=== PATIENT | female | born 1990 | race Caucasian/White ===

== ENCOUNTER → 2016-07-10 | Outpatient (REF) | payer OTHER | LOC: M LAB REF 17:03 | PROVIDERS: ATTEND Obstetrics & Gynecology | DX: Z34.82 Encounter for supervision of other normal pregnancy, second trimester (principal); Z36 Encounter for antenatal screening of mother; Z3A.00 Weeks of gestation of pregnancy not specified ==

== ENCOUNTER → 2016-08-09 | Outpatient (REF) | payer OTHER | LOC: M LAB REF 13:05 | PROVIDERS: ATTEND Obstetrics & Gynecology | DX: Z36 Encounter for antenatal screening of mother (principal); Z3A.00 Weeks of gestation of pregnancy not specified ==

== ENCOUNTER → 2016-08-17 | Outpatient (CLI) | payer OTHER ==
--- NOTE | 2016-08-17 15:36 | REP ---
Clinical: Anatomical evaluation. Comparison: None . Findings: Examination demonstrates a single live intrauterine in cephalic presentation. motion is identified by technologist. Placenta is noted posteriorly and grade 0 without evidence for placenta previa or abruption. Amniotic fluid volume is normal. Cervix measures 4.0 cm in length and appears closed. No evidence for nuchal cord. Gestational age by LMP 19 weeks 6 days with ELVIS 01/05/2017 . Gestational age by current measurements 20 weeks 4 days with ELVIS 12/31/2016 . FHR equals 144 beats per minute. BPD 4.9 cm 20 weeks 6 days HC 18.2 cm 20 weeks 4 days AC 15.6 cm 20 weeks 5 days FL 3.3 cm 20 weeks 1 day HL 3.2 cm 20 weeks 6 days HC/AC ratio 1.17 Estimated weight 358 grams ( 69th percentile). Anatomical assessment demonstrates normal structures including cranium, choroid plexus, cavum, cerebellum/posterior fossa, lungs, four-chamber heart/ventricular outflow tracts, diaphragm, stomach, cord insertion/three-vessel cord, kidneys/bladder, spine, and extremities. Impression: Single live intrauterine in cephalic presentation demonstrating appropriate interval growth. Facial features are incompletely evaluated. Remainder of the anatomical assessment is complete and normal. Signed by Swapnil Low MD 08/17/2016 03:27 P
== END ==
LOC: M RAD 13:44
PROVIDERS: ATTEND Obstetrics & Gynecology
DX: Z36 Encounter for antenatal screening of mother (principal); Z3A.20 20 weeks gestation of pregnancy

== ENCOUNTER → 2016-10-08 | Outpatient (CLI) | payer OTHER ==
[2016-10-08 13:06] LABS: MEAN CORPUSCULAR HEMOGLOBIN 33.3 pg (27.0-33.0); MEAN CORPUSCULAR HGB CONC 35.8 g/dl (32.0-36.5); MEAN CORPUSCULAR VOLUME 92.9 fl (80.0-96.0); RED CELL DISTRIBUTION WIDTH 13.1 % (11.5-14.5); WHITE BLOOD COUNT 8.9 K/mm3 (4.0-10.0)
== END ==
LOC: M LAB 11:26
PROVIDERS: ATTEND Obstetrics & Gynecology
DX: Z34.82 Encounter for supervision of other normal pregnancy, second trimester (principal)

== ENCOUNTER → 2016-10-16 | Outpatient (CLI) | payer OTHER | LOC: M LAB 08:20 | PROVIDERS: ATTEND Obstetrics & Gynecology | DX: Z36 Encounter for antenatal screening of mother (principal); Z3A.00 Weeks of gestation of pregnancy not specified ==

== ENCOUNTER → 2016-12-11 | Outpatient (REF) | payer OTHER | LOC: M LAB REF 17:07 | PROVIDERS: ATTEND Obstetrics & Gynecology | DX: Z34.83 Encounter for supervision of other normal pregnancy, third trimester (principal); Z36 Encounter for antenatal screening of mother ==

== ENCOUNTER 2017-01-03 15:31 | Inpatient (IN) | payer OTHER ==
[2017-01-03] VITALS (32 sets, daily range): BP systolic 108–141; BP diastolic 54–83
[~2017-01-03] VITALS: Ht 177.8 cm; Wt 89.0 kg
[2017-01-03] MEDS ORDERED: PRENTAB9 PO (15:36)
[2017-01-03] MEDS ORDERED: PENICILLIN G POTASSIUM IV 5 MU in D5W MINI-BAG PLUS 100 ML IV STA (16:08)
[2017-01-03 16:58] LABS: MEAN CORPUSCULAR HEMOGLOBIN 34.4 pg (27.0-33.0); MEAN CORPUSCULAR HGB CONC 35.6 g/dl (32.0-36.5); MEAN CORPUSCULAR VOLUME 96.6 fl (80.0-96.0); RED CELL DISTRIBUTION WIDTH 12.5 % (11.5-14.5); WHITE BLOOD COUNT 12.1 K/mm3 (4.0-10.0)
[2017-01-03] MEDS ORDERED: OXYTOCIN 30 UNITS IN 0.9% NaCl 500ML IV BAG (J2590) As Ordered ONE (19:13)
[2017-01-03] MEDS ORDERED: FENTANYL 2MCG/ML ROPIVACAINE 0.2% IN 0.9% NACL 200ML IVBAG As Ordered ONE (19:44)
--- NOTE | 2017-01-03 20:35 | HPE ---
DATE OF ADMISSION: 01/03/2017 A 26-year-old G1, P0 female at 39-5/7 weeks gestation by 6-week ultrasound, estimated date of confinement (EDC) 01/05/2017, presents for irregular contractions every 3-4 minutes for the last several hours. She denies vaginal bleeding. There is good movement. She was checked in the office and found to be 4-5 cm dilated. COURSE: The patient initiated care at 6 weeks gestation on 05/15/2016. Her first trimester blood pressure was 114/62, weight 156 pounds. Her course was unremarkable. MEDICAL HISTORY: None. SURGICAL HISTORY: None. ALLERGIES: None. SOCIAL HISTORY: The patient is . She denies cigarettes, alcohol, or drug use through her . FAMILY HISTORY: Noncontributory. PHYSICAL EXAMINATION: Blood pressure 122/82, pulse 84, afebrile. She appears moderately uncomfortable. Head and neck exam normal. Lungs clear. Heart regular rate and rhythm. Abdomen nontender, gravid. heart tones category 1. Sterile vaginal exam 6 cm, 100% effaced, -1 station, bulging membranes. Her contractions are every 2-3 minutes. Extremities: Nontender. LABORATORY DATA: Blood type O positive, Rubella immune, RPR nonreactive. Hepatitis B and C negative. HIV negative. GBS positive on 12/11/2016. ASSESSMENT: A 26-year-old G1, P0 female at 39-5/7 weeks gestation who presents in active labor. PLAN: Patient is admitted on 01/03/2017, and patient will receive antibiotics for group B streptococcus (GBS) prophylaxis.
[2017-01-03] MEDS ORDERED: PENICILLIN G POTASSIUM IV 2.5 MU in D5W 100 ML IV SCH (21:00)
[2017-01-03] MEDS ORDERED: ONDANSETRON 4MG/2ML VIAL (J2405) IV PRN (21:15)
[2017-01-03] MEDS ORDERED: FENTANYL/ROPIVACAINE/NACL BAG 200 ML EPIDURAL SCH (21:15)
[2017-01-03] MEDS ORDERED: EPIDURAL/PCA KEYS XX PRN (21:15)
[2017-01-03] MEDS ORDERED: LACTATED RINGER'S 1000 ML IV PRN (21:15)
[2017-01-03] MEDS ORDERED: REFRIGERATOR IV KEYS XX PRN (21:15)
[2017-01-03] MEDS ORDERED: ePHEDrine SULFATE 25 MG/5 ML(5MG/ML) SYRINGE IV PRN (21:15)
[2017-01-03] MEDS ORDERED: NALOXONE INJ 0.4 MG/1 ML VIAL (J2310) IV PRN (21:15)
[2017-01-03] MEDS ORDERED: diphenhydrAMINE INJ 50MG/ML VIAL (J1200) IV PRN (21:15)
[2017-01-03] MEDS ORDERED: EPIDURAL COMMENT XX SCH (21:15)
[2017-01-04] VITALS (11 sets, daily range): BP systolic 108–129; BP diastolic 56–73
[2017-01-04] MEDS ORDERED: OXYTOCIN DRIP 30 UNITS in APPROPRIATE DILUENT 1 EA IV ONE (00:15)
[2017-01-04] MEDS ORDERED: DIBUCAINE 1% OINTMENT 30GM TOP PRN (00:15)
[2017-01-04] MEDS ORDERED: METHYLERGONOVINE MALEATE 0.2 MG TAB PO PRN (00:15)
[2017-01-04] MEDS ORDERED: DOCUSATE SODIUM 100 MG CAP PO PRN (00:15)
[2017-01-04] MEDS ORDERED: RHOGAM 300 MCG (1500 IU) INJ (J2790) IM SCH (00:15)
[2017-01-04] MEDS ORDERED: LIDOCAINE 1% MDV INJ 50 ML VIAL INFIL ONE (00:15)
[2017-01-04] MEDS ORDERED: MEASLES,MUMPS,RUBELLA VACCINE INJ (MMR-II) (90707) SC SCH (00:15)
[2017-01-04] MEDS ORDERED: PROMETHAZINE 25 MG TAB PO PRN (00:15)
--- NOTE | 2017-01-04 00:40 | DN ---
DATE OF DELIVERY: 01/03/2017 PREDELIVERY DIAGNOSES: 1. Term . 2. Labor. POSTDELIVERY DIAGNOSIS: Delivered. PROCEDURE: Outlet vacuum assisted vaginal delivery. LIME MIXER: Sarabjit Gandhi MD. ANESTHESIA: Epidural. ESTIMATED BLOOD LOSS: 300 mL. FINDINGS: 8 pound 12 ounce female . scores 8 and 9. Nuchal cord times one. DELIVERY SUMMARY: After an hour plus second stage, the patient was diagnosed with arrestive placenta +3 station. Delivery was accomplished with a controlled traction and level of maternal effort on the second attempt. There were no pop offs of the vacuum. Nuchal cord times one was reduced manually. Shoulders delivered with ease. Moderate meconium was noted to be present. The infant cried spontaneously and was handed to the mother. The cord was doubly clamped and cut. Placenta delivered spontaneously and appeared to be intact. The patient received intravenous (IV) Pitocin immediately after delivery of the placenta. Second-degree perineal laceration was repaired under local anesthesia with 2-0 chromic in the usual fashion. Left labial first-degree laceration was repaired with 4-0 chromic. Sponge and needle counts were correct.
[2017-01-04] MEDS: IBUPROFEN 800 MG TAB PO PRN ×2 (02:16→12:16)
[2017-01-04] MEDS: ACETAMINOPHEN 500 MG TAB PO PRN ×2 (08:03→19:44)
[2017-01-04] MEDS: PRENATAL VITAMINS CHEWABLE TABLET PO SCH (08:04)
[2017-01-05] MEDS: IBUPROFEN 800 MG TAB PO PRN (04:32)
[2017-01-05 05:43] VITALS: BP 111/59
[2017-01-05] MEDS: PRENATAL VITAMINS CHEWABLE TABLET PO SCH (09:55)
[2017-01-05] MEDS ORDERED: IBUP-1114 PO (10:56)
[2017-01-05] MEDS ORDERED: ACET50TA PO (10:56)
== END 2017-01-05 11:44 | disposition home or self-care (01) | DRG 560 ==
LOC: M LDI 15:31 → M OBS 01-04 02:52
PROVIDERS: ADMIT Specialist; ATTEND Specialist
PROC: 10D07Z6 Extraction of Products of Conception, Vacuum, Via Natural or Artificial Opening (ICD-10-PCS; principal; 2017-01-03)
PROC: 0KQM0ZZ Repair Perineum Muscle, Open Approach (ICD-10-PCS; 2017-01-03)
PROC: 0HQ9XZZ Repair Perineum Skin, External Approach (ICD-10-PCS; 2017-01-03)
DX: O99.824 Streptococcus B carrier state complicating childbirth (principal); Z3A.39 39 weeks gestation of pregnancy; O77.0 Labor and delivery complicated by meconium in amniotic fluid; O70.1 Second degree perineal laceration during delivery; O70.0 First degree perineal laceration during delivery; O75.89 Other specified complications of labor and delivery; Z37.0 Single live birth

== ENCOUNTER → 2017-08-18 | Outpatient (CLI) | payer BC, OTHER ==
[2017-08-18 17:35] LABS: BASO % 0.5 % (0.0-1.0); EOS # 0.2 10^3/uL (0.0-0.50); HEMATOCRIT 40.1 % (36.0-47.0); HEMOGLOBIN 13.6 g/dl (12.0-16.0); IMMATURE GRANULOCYTE % 0.1 % (0-3.0); LYMPH # 2.6 10^3/uL (1.5-6.5); LYMPH % 34.3 % (24.0-44.0); MEAN CORPUSCULAR HEMOGLOBIN 30.9 pg (27.0-33.0); MEAN CORPUSCULAR HGB CONC 33.9 g/dl (32.0-36.5); MEAN CORPUSCULAR VOLUME 91.1 fl (80.0-96.0); MONO # 0.5 10^3/uL (0.0-0.8); MONO % 6.1 % (0.0-5.0); NEUTROPHILS # 4.3 10^3/uL (1.8-7.7); PLATELET COUNT, AUTOMATED 221 10^3/uL (150-450); RED CELL DISTRIBUTION WIDTH 12.2 % (11.5-14.5); WHITE BLOOD COUNT 7.5 10^3/uL (4.0-10.0)
[2017-08-18 17:48] LABS: ALBUMIN/GLOBULIN RATIO 1.21 (1.00-1.93); ALKALINE PHOSPHATASE 142 U/L (45-117); ALT/SGPT 18 U/L (12-78); ANION GAP 7 MEQ/L (8-16); AST/SGOT 15 U/L (7-37); BILIRUBIN,TOTAL 0.3 MG/DL (0.2-1.0); BLOOD UREA NITROGEN 17 MG/DL (7-18); CARBON DIOXIDE LEVEL 31 MEQ/L (21-32); CHLORIDE LEVEL 106 MEQ/L (98-107); CREATININE FOR GFR 0.86 MG/DL (0.55-1.30); GLOMERULAR FILTRATION RATE > 60.0 (>60); GLUCOSE, FASTING 83 MG/DL (70-100); LIPASE 119 U/L (73-393); SODIUM LEVEL 144 MEQ/L (136-145); TOTAL PROTEIN 7.3 GM/DL (6.4-8.2)
== END ==
LOC: M WUC 15:37
DX: R10.815 Periumbilic abdominal tenderness (principal)
CPT/HCPCS: 83690

== ENCOUNTER → 2019-09-07 | Outpatient (REF) | payer OTHER ==
[~2019-09-07] MED LIST: IBUP-1114 PO; MAPA500T2 PO; PRENTAB9 PO
== END ==
LOC: M LAB REF 15:52
PROVIDERS: ATTEND Physician Assistant
DX: N39.0 Urinary tract infection, site not specified (principal)

== ENCOUNTER → 2020-07-11 | Outpatient (CLI) | payer OTHER ==
--- NOTE | 2020-07-11 15:55 | REP ---
INDICATION: RT BREAST LUMP 6:00 POSITION. COMPARISON: None TECHNIQUE: MLO and CC views of right breast performed with tomosynthesis. Focused right breast ultrasound performed. FINDINGS: Heterogeneously dense fibroglandular tissue is seen in the right breast. The skin marker is present in the lower outer right breast. This indicates the site of the palpable lump. At that location there is a relatively well-defined nodule which measures approximately 1.2 cm maximum diameter. I see no other mass or architectural distortion. No clustered microcalcifications are seen. Focused right breast ultrasound performed inferolaterally in the right breast. At the 7 o'clock position, approximately 7 cm from the nipple there appears to be a complex cystic structure with lobulated margins and diffuse internal echoes likely representing debris. It measures 1.2 x 0.9 x 0.8 cm. There is no internal blood flow with Doppler evaluation. IMPRESSION: BIRADS/ACR category 2 benign. At the site of the palpable lump in the inferolateral right breast there is a cyst containing some debris but no internal nodule. This appears benign. This mammogram was interpreted with the aid of an FDA-approved computer-aided detection system. The patient letter being requested is M2. RECOMMENDATION: Clinical correlation and follow-up. <Electronically signed by Tato Mcghee > 07/11/20 [id number]
== END ==
LOC: M WHC 12:37
PROVIDERS: ATTEND Internal Medicine
DX: N63.15 Unspecified lump in the right breast, overlapping quadrants (principal)
CPT/HCPCS: 76642; 77065; G0279

== ENCOUNTER → 2020-08-24 | Outpatient (REF) | payer OTHER ==
[2020-08-24 18:26] LABS: HEMATOCRIT 38.5 % (36.0-47.0); HEMOGLOBIN 12.9 g/dl (12.0-15.5); MEAN CORPUSCULAR HEMOGLOBIN 30.9 pg (27.0-33.0); MEAN CORPUSCULAR HGB CONC 33.5 g/dl (32.0-36.5); MEAN CORPUSCULAR VOLUME 92.1 fl (80.0-96.0); PLATELET COUNT, AUTOMATED 213 10^3/uL (150-450); RED BLOOD COUNT 4.18 10^6/uL (4.00-5.40); WHITE BLOOD COUNT 7.6 10^3/uL (4.0-10.0)
[2020-08-24 19:29] LABS: HEPATITIS C VIRUS ABY INDEX < 0.0 INDEX (<0.8); HIV 1&2 SCREEN CENTAUR NEGATIVE (NEGATIVE)
== END ==
LOC: M PLALAB 13:42
PROVIDERS: ATTEND Advanced Practice Midwife
DX: Z34.91 Encounter for supervision of normal pregnancy, unspecified, first trimester (principal); Z3A.08 8 weeks gestation of pregnancy

== ENCOUNTER → 2020-09-21 | Outpatient (CLI) | payer OTHER | LOC: M PLALAB 15:35 | PROVIDERS: ATTEND Obstetrics & Gynecology | DX: Z34.81 Encounter for supervision of other normal pregnancy, first trimester (principal); Z3A.00 Weeks of gestation of pregnancy not specified ==

== ENCOUNTER → 2020-10-18 | Outpatient (REF) | payer OTHER | LOC: M LAB REF 17:46 → M PLALAB 17:46 | PROVIDERS: ATTEND Nurse Practitioner Adult Health | DX: Z00.00 Encounter for general adult medical examination without abnormal findings (principal) ==

== ENCOUNTER → 2020-10-18 | Outpatient (CLI) | payer OTHER | LOC: M WHC 08:25 | PROVIDERS: ATTEND Obstetrics & Gynecology | DX: Z36.89 Encounter for other specified antenatal screening (principal); Z3A.16 16 weeks gestation of pregnancy ==

== ENCOUNTER → 2020-10-29 | Outpatient (REF) | payer OTHER | LOC: M LAB REF 19:27 | PROVIDERS: ATTEND Nurse Practitioner Family | DX: R30.0 Dysuria (principal) ==

== ENCOUNTER → 2020-11-11 | Outpatient (CLI) | payer OTHER ==
--- NOTE | 2020-11-13 07:06 | REP ---
INDICATION: ANATOMY COMPARISON: None. TECHNIQUE: Transabdominal obstetrical ultrasound with color Doppler evaluation. FINDINGS: Examination demonstrates a single live intrauterine in variable presentation. motion is identified by technologist. Placenta is noted anterior and grade 0 without evidence for placenta previa or abruption. Amniotic fluid volume is normal. Cervix measures 3.3 cm in length and appears closed.. Gestational age by LMP 19 weeks 4 days with ELVIS 04/03/2021. Gestational age by current measurements 19 weeks 5 days with ELVIS is 04/02/2021. FHR equals 155 beats per minute. Estimated weight 316 grams (62ndpercentile). Anatomical assessment demonstrates normal structures including cranium, choroid plexus, cavum, cerebellum/posterior fossa, facial features, lungs, four-chamber heart/ventricular outflow tracts, diaphragm, stomach, cord insertion/three-vessel cord, kidneys/bladder, and extremities. IMPRESSION: 1. Single live intrauterine in variable presentation demonstrating appropriate estimated weight. 2. Limited evaluation of the spine may warrant re-evaluation and follow-up. Remainder of the anatomical assessment is complete and normal. <Electronically signed by Swapnil Low > 11/13/20 0702
== END ==
LOC: M WHC 14:51
PROVIDERS: ATTEND Obstetrics & Gynecology
DX: Z36.9 Encounter for antenatal screening, unspecified (principal); Z3A.19 19 weeks gestation of pregnancy

== ENCOUNTER → 2020-11-15 | Outpatient (CLI) | payer OTHER | LOC: M WHC 16:03 | PROVIDERS: ATTEND Obstetrics & Gynecology | DX: Z34.92 Encounter for supervision of normal pregnancy, unspecified, second trimester (principal); Z3A.20 20 weeks gestation of pregnancy ==

== ENCOUNTER → 2020-12-09 | Outpatient (CLI) | payer OTHER ==
--- NOTE | 2020-12-11 05:05 | REP ---
INDICATION: F/U ANATOMY COMPARISON: 11/11/2020 TECHNIQUE: Transabdominal obstetrical ultrasound with color Doppler evaluation. FINDINGS: Examination demonstrates a single live intrauterine in breech presentation. motion is identified by technologist. Placenta is noted anterior and grade 1 without evidence for placenta previa or abruption. Amniotic fluid volume is normal. Cervix measures 4.0 cm in length and appears closed.. Selected gestational age: 23 weeks 4 days with ELVIS 04/03/2021. Gestational age by current measurements 23 weeks 5 days with ELVIS 04/02/2021. FHR equals 140 beats per minute. Estimated weight 619 grams (47thpercentile). Limited evaluation of the spine again noted due to positioning and motion. IMPRESSION: Single live intrauterine in breech presentation demonstrating appropriate interval growth. Continued limited evaluation of the spine due to positioning and motion. <Electronically signed by Swapnil Low > 12/11/20 [id number]
== END ==
LOC: M WHC 15:02
PROVIDERS: ATTEND Obstetrics & Gynecology
DX: Z36.89 Encounter for other specified antenatal screening (principal); Z3A.20 20 weeks gestation of pregnancy

== ENCOUNTER 2021-01-05 19:36 | Outpatient (CLI) | payer OTHER ==
[~2021-01-05] VITALS: Ht 177.8 cm; Wt 85.5 kg
[~2021-01-05 19:36] MED LIST changes: -FLOM0.4C39 PO; -PERCOCET PO
[2021-01-05] MEDS ORDERED: LACTATED RINGER'S 1000 ML IV STA (20:02)
[2021-01-05] MEDS: LR 1,000 ML IV SCH (20:05)
[2021-01-05 20:34] VITALS: BP 124/76
[2021-01-05] MEDS ORDERED: MORPHINE 4 MG/ML 1ML VIAL/SYRINGE (J2270) As Ordered ONE (21:10)
[2021-01-05] MEDS ORDERED: MORPHINE 4 MG/ML 1ML VIAL/SYRINGE (J2270) IV ONE (21:30)
--- NOTE | 2021-01-05 22:53 | REPVR ---
PROCEDURE INFORMATION: Exam: US Retroperitoneal Limited, Kidneys Exam date and time: 01/05/2021 9:44 PM Age: 30 years old Clinical indication: Abdominal pain; Flank; Left; ; Additional info: Left flank severe pain, at bedside TECHNIQUE: Imaging protocol: Real-time ultrasound of the retroperitoneum with image documentation. Examination was focused on the kidneys. COMPARISON: US OBS FOLLOW UP OR REPEAT 01/05/2021 7:09 AM FINDINGS: Right kidney: Right kidney measures 11.7 x 5.0 x 5.5 cm. There is moderate right-sided hydronephrosis. Left kidney: Left kidney measures 13.6 x 6.9 x 7.1 cm. There is moderate left-sided hydronephrosis. Uterus: Live intrauterine gestation is present. IMPRESSION: Moderate bilateral hydronephrosis. Electronically signed by: Devin Veliz On 01/05/2021 22:52:47 PM
--- NOTE | 2021-01-05 23:32 | IPNPDOC ---
Text Note Date of Service The patient was seen on 01/05/21. NOTE S: 30 yo at 27 4/7 weeks wiht sudden onset left flank pain that wrapped around to her front today. It was intermittent. Severe 10/10 pain. no bleeding. O: AVSS Appears mildly uncomfortable Abd: NT, gravid FHT: Cat I toco: irregular, mild no CVA tenderness UA: 1+ blood A/P 30 yo at 27 4/7 weeks with left flank pain suspicious for left nephrolithiasis check renal ultrasound Pain management IVF's Observe overnight VS,Fishbone, I+O VS, Fishbone, I+O Vital Signs Date Time Temp Pulse Resp B/P (MAP) Pulse Ox O2 Delivery O2 Flow Rate FiO2 01/05/21 21:15 22 Room Air 01/05/21 20:34 98.3 74 124/76 (92) DAKSHA VIDAL MD Jan 05, 2021 23:32
[2021-01-06] MEDS: MORPHINE 4 MG/ML 1ML VIAL/SYRINGE (J2270) IV PRN ×2 (00:03→05:04)
[2021-01-06 05:04] VITALS: BP 106/67
[2021-01-06 07:30] VITALS: BP 98/60
--- NOTE | 2021-01-06 07:56 | IPNPDOC ---
Text Note Date of Service The patient was seen on 01/06/21. NOTE S: No pain currently. Had an episode of left flank pain last night requiring medication O: AVSS NAD Abd: NT, soft no CVA tenderness FHT: Cat I toco: irregular, mild A/P 30 yo at 27 5/7 weeks with probable left nephrolithiasis try does of Flomax today could consider discharge hoem later today; will need adequate pain management at home VS,Fishbone, I+O VS, Fishbone, I+O Vital Signs Date Time Temp Pulse Resp B/P (MAP) Pulse Ox O2 Delivery O2 Flow Rate FiO2 01/06/21 07:30 97.6 73 13 98/60 (73) 01/05/21 21:15 Room Air DAKSHA VIDAL MD Jan 06, 2021 07:56
[2021-01-06] MEDS ORDERED: TAMSULOSIN 0.4 MG CAP PO SCH (09:00)
[2021-01-06] MEDS: PERCOCET 5MG/325MG TAB PO PRN ×2 (09:34→13:44)
[2021-01-06 09:55] VITALS: BP 101/62
[2021-01-06 12:40] VITALS: BP 101/62
[2021-01-06] MEDS: LR 1,000 ML IV SCH (12:43)
[2021-01-06 13:14] VITALS: BP 103/60
[2021-01-06 17:02] VITALS: BP 105/60
--- NOTE | 2021-01-06 18:46 | IPNPDOC ---
Text Note Date of Service The patient was seen on 01/06/21. NOTE Outpatient Pt reports feeling better and desires discharge Has used only one dose of percocet today. Taking flomax and reports passing a small stone Cat I tracing Per consult Dr Gandhi this am, discharge home. Continue flomax. Percocet prn sparingly After hours access, PTL, daily FKC, warnings reviewed. Keep next appt VS,Fishbone, I+O VS, Fishbone, I+O Vital Signs Date Time Temp Pulse Resp B/P (MAP) Pulse Ox O2 Delivery O2 Flow Rate FiO2 01/06/21 17:02 97.6 77 105/60 (75) 01/06/21 14:14 18 Room Air Fransisca Alexander CNM Jan 06, 2021 18:46
[2021-01-06] MEDS ORDERED: FLOM0.4C39 PO (18:48)
[2021-01-06] MEDS ORDERED: PERCOCET PO (18:48)
== END 2021-01-06 18:59 | disposition home or self-care (01) ==
LOC: M LDO 19:36
PROVIDERS: ATTEND Specialist
DX: O26.892 Other specified pregnancy related conditions, second trimester (principal); R10.2 Pelvic and perineal pain; M54.5 Low back pain; Z3A.27 27 weeks gestation of pregnancy; N20.0 Calculus of kidney
CPT/HCPCS: 76775; 81001; 96374; G0378; G0463; J2270

== ENCOUNTER → 2021-01-05 | Outpatient (CLI) | payer OTHER ==
[~2021-01-05] MED LIST changes: +FLOM0.4C39 PO; +PERCOCET PO
--- NOTE | 2021-01-05 08:27 | REP ---
INDICATION: F/U ANATOMY COMPARISON: 12/09/2020 TECHNIQUE: Transabdominal obstetrical ultrasound with color Doppler evaluation. FINDINGS: Examination demonstrates a single live intrauterine in cephalic presentation. motion is identified by technologist. Placenta is noted anterior and grade 1 without evidence for placenta previa or abruption. Amniotic fluid volume is normal. Cervix measures 3.4 cm in length and appears closed.. Selected gestational age: 27 weeks 3 days with ELVIS 04/03/2021. Gestational age by current measurements 28 weeks 1 day with ELVIS 03/29/2021. FHR equals 135 beats per minute. Estimated weight 1184 grams (67thpercentile). Anatomical assessment demonstrates normal structures including spine. IMPRESSION: Single live intrauterine in cephalic presentation demonstrating appropriate interval growth. In conjunction with prior examination anatomical assessment is complete and normal. <Electronically signed by Swapnil Low > 01/05/21 1655
== END ==
LOC: M WHC 06:59
PROVIDERS: ATTEND Obstetrics & Gynecology
DX: Z36.89 Encounter for other specified antenatal screening (principal); Z3A.24 24 weeks gestation of pregnancy

== ENCOUNTER → 2021-01-05 | Outpatient (CLI) | payer OTHER ==
[2021-01-05 10:33] LABS: HEMOGLOBIN 12.5 g/dl (12.0-15.5); MEAN CORPUSCULAR HEMOGLOBIN 32.1 pg (27.0-33.0); MEAN CORPUSCULAR HGB CONC 33.8 g/dl (32.0-36.5); MEAN CORPUSCULAR VOLUME 94.9 fl (80.0-96.0); PLATELET COUNT, AUTOMATED 187 10^3/uL (150-450); WHITE BLOOD COUNT 7.4 10^3/uL (4.0-10.0)
== END ==
LOC: M PLALAB 07:24
PROVIDERS: ATTEND Obstetrics & Gynecology
DX: Z36.89 Encounter for other specified antenatal screening (principal); Z3A.24 24 weeks gestation of pregnancy

== ENCOUNTER 2021-03-01 11:49 | Outpatient (CLI) | payer OTHER ==
[~2021-03-01] VITALS: Ht 177.8 cm; Wt 93.4 kg
[2021-03-01 12:18] VITALS: BP 131/78
[2021-03-01] MEDS ORDERED: BETAMETHASONE SOLUSPAN 6MG/ML 5ML VIAL (J0702 PER 3MG) IM SCH (13:00)
[2021-03-01] MEDS ORDERED: HOME MED LIST COMPLETE! XX SCH (13:05)
--- NOTE | 2021-03-01 16:18 | IPN ---
PROGRESS NOTE DATE: 03/01/2021 Kate is a 31-year-old 2, para 1-0-0-1 at 35 weeks and 2/7 days, estimated date of confinement (EDC) of 04/03/2021 based on first-trimester ultrasound. She presents to labor and delivery following an add-on visit at the office, where she was reported to have some light vaginal bleeding. She denies painful contractions, leakage of fluid. The fetus has been active. care [facility] at [facility] in the first trimester. course has been uncomplicated thus far. OBSTETRIC HISTORY: On 01/03/2017, 40 weeks gestation, 8-pound 13-ounce female, vaginal delivery at [facility]. No complications. OBSTETRIC LABORATORY DATA: Uncomplicated. GBS unknown. PAST MEDICAL HISTORY: Kidney stones. SURGERIES: [place] tooth extraction. FAMILY HISTORY: Crohn's disease, breast cancer, and ovarian cancer. SOCIAL HISTORY: Nonsmoker. Denies alcohol and drug use. No history of sexual transmitted infections. She denies history of abuse, physical, sexual, and emotional. ALLERGIES: No known drug allergies. CURRENT MEDICATIONS: vitamin. OBJECTIVE: heart rate 153 with Doppler tones in the office. Sterile speculum exam: Noted to have light bloody show. Cervix appeared visually open. No leakage of fluid. No active bleeding from the internal cervical os. Sterile vaginal exam: 3 cm dilated, 8% effaced, -3 station. Midposition. Abdomen gravid. Cephalic presentation by Pankaj as well as confirmed with sterile vaginal exam. ASSESSMENT: Intrauterine at 35-2/7 weeks, heart rate appropriate for gestation. Potential latent labor. Advanced cervical dilation, . PLAN: To labor and delivery for betamethasone injection and to have that repeated in 24 hours. I did review signs and symptoms of active labor, danger signs, movement counts, as well as access to care. the patient has had her questions answered. The plan is to give her betamethasone, and she will be discharged following that and return to labor and delivery in 24 hours for betamethasone injection #2. GBS was obtained in the office today.
== END 2021-03-01 14:00 | disposition home or self-care (01) ==
LOC: M LDO 11:49
PROVIDERS: ATTEND Advanced Practice Midwife
DX: O60.03 Preterm labor without delivery, third trimester (principal); Z3A.35 35 weeks gestation of pregnancy
CPT/HCPCS: 59025; 96372; G0378; G0463; J0702

== ENCOUNTER → 2021-03-01 | Outpatient (REF) | payer OTHER ==
[~2021-03-01] MED LIST changes: +FLOM0.4C39 PO; +PERCOCET PO
== END ==
LOC: M SFHCWAGY 12:55
PROVIDERS: ATTEND Advanced Practice Midwife
DX: Z34.93 Encounter for supervision of normal pregnancy, unspecified, third trimester (principal)

== ENCOUNTER 2021-03-02 13:23 | Outpatient (CLI) | payer OTHER ==
[~2021-03-02] VITALS: Ht 177.8 cm; Wt 93.7 kg
[2021-03-02 13:40] VITALS: BP 129/65
[2021-03-02] MEDS ORDERED: BETAMETHASONE SOLUSPAN 6MG/ML 5ML VIAL (J0702 PER 3MG) IM ONE (13:40)
[2021-03-02] MEDS ORDERED: HOME MED LIST COMPLETE! XX SCH (13:45)
--- NOTE | 2021-03-02 14:05 | IPNPDOC ---
Text Note Date of Service The patient was seen on 03/02/21. NOTE Progress note S: 31 yo at 35 3/7 weeks by 8 weeks ultrasound (EDC=04/03/2021) presents for second dose of betamethasone. She has occasional contractions but not worse than yesterday. She received her first dose yesterday. O: AVSS NAD Abdomen: Nontender, gravid, soft heart tones: Category 1 [place]: Irregular Extremities: Nontender A?P 31-year-old female at 35-3/7 weeks gestation by 8-week ultrasound presents for second dose of betamethasone. Betamethasone No. 2 administered. Follow-up in office as scheduled DAKSHA VIDAL MD Mar 02, 2021 14:05
[2021-03-02 14:19] VITALS: BP 119/70
== END 2021-03-02 14:30 | disposition home or self-care (01) ==
LOC: M LDO 13:23
PROVIDERS: ATTEND Specialist
DX: O60.03 Preterm labor without delivery, third trimester (principal); Z3A.35 35 weeks gestation of pregnancy
CPT/HCPCS: 59025; 96372; G0378; G0463; J0702

== ENCOUNTER 2021-03-04 02:45 | Inpatient (IN) | payer OTHER ==
[~2021-03-04] VITALS: Ht 177.8 cm; Wt 93.0 kg
[2021-03-04] VITALS (9 sets, daily range): BP systolic 103–126; BP diastolic 59–76
[2021-03-04] MEDS ORDERED: HOME MED LIST COMPLETE! XX SCH (03:35)
[2021-03-04] MEDS ORDERED: LIDOCAINE 1% MDV 20ML VIAL As Ordered ONE (03:51)
[2021-03-04] MEDS ORDERED: OXYTOCIN INJ 10 UNITS/ML VIAL (J2590) As Ordered ONE (04:06)
[2021-03-04] MEDS ORDERED: CARBOPROST TROMETHAMINE 250 MCG/ML AMP IM PRN (04:25)
[2021-03-04] MEDS ORDERED: OXYTOCIN INJ 10 UNITS/ML VIAL (J2590) IM PRN (04:25)
[2021-03-04] MEDS ORDERED: LIDOCAINE 1% MDV 20ML VIAL INFIL PRN (04:25)
[2021-03-04] MEDS ORDERED: TRANEXAMIC ACID INJection 1,000 MG in NS 100 ML IV PRN (04:25)
[2021-03-04] MEDS ORDERED: METHYLERGONOVINE MALEATE 0.2 MG/ML VIAL (J2210) IM PRN (04:25)
--- NOTE | 2021-03-04 04:41 | HPEPDOC ---
Obstetrical History & Physical General Date of Admission Mar 04, 2021 at 02:45 History of Present Illness 31yo [id number] at 35+5 weeks EGA. Presented by ambulance having unintentionally delivered at home. Onset of labor approx 1 hour prior to delivery. No dystocia reported by EMS. Placenta reported to have delivered fully intact shortly thereafter. Bleeding after delivery has been mild to moderate since delivery. PN course: uncomplicated. PMH: none SH: wisdom teeth Meds: PNV, Vit B6 All: NKDA PSYCHOLOGIST RESEARCH ASSISTANT: h/o AUB/dysmenorrhea/CPP, No STI OB: Term at 40 weeks uncomplicated. 8lbs 13oz Sochx: no t/e/d Famhx: PGM breast CA PN labs: O+, Rub Imm, HepBsAg NR, HIV neg, GBS unknown, HepC neg, GCT: 81. O: normotensive, normal HR, afebrile H: RRR L: CTA b/l Abd: soft,nt,nd, U-2cm/fundus firm. Ext: no c/c/e Pelvic: 2nd degree laceration. A/P: 31yo s/p home delivery . Uncomplicated. (See delivery note) -Routine admission -Set up for laceration repair -Routine care. Ksenia Singleton DO Past Medical History Allergies Coded Allergies: No Known Allergies (Unverified , 01/03/17) Medications Scheduled No.137/Iron/Folic Acd ( Vitamin Tablet) 1 Tab Tab, 1 TAB PO DAILY Physical Examination Vital Signs/I&O Vital Signs Date Time Temp Pulse Resp B/P (MAP) Pulse Ox O2 Delivery O2 Flow Rate FiO2 03/04/21 03:24 53 16 113/71 (85) 03/04/21 03:02 98.0 Laboratory Data 24H LABS Laboratory Tests 2 03/04/21 03:21: Serology Scanned Report Hepatitis B Testing COLTON SINGLETON DO Mar 04, 2021 04:41
[2021-03-04] MEDS ORDERED: ACETAMINOPHEN 500 MG TAB PO PRN (04:45)
[2021-03-04] MEDS ORDERED: RHOGAM 300 MCG (1500 IU) INJ (J2790) IM SCH (04:45)
[2021-03-04] MEDS ORDERED: ACETAMINOPHEN TAB 650MG DOSE (2X325MG) PO PRN (04:45)
[2021-03-04] MEDS ORDERED: MEASLES,MUMPS,RUBELLA VACCINE INJ (MMR-II) (90707) SC SCH (04:45)
[2021-03-04] MEDS ORDERED: DOCUSATE SODIUM 100MG CAPSULE PO PRN (04:45)
[2021-03-04] MEDS ORDERED: PROMETHAZINE 25 MG TAB PO PRN (04:45)
[2021-03-04] MEDS ORDERED: DIBUCAINE 1% OINTMENT 30GM TOP PRN (04:45)
[2021-03-04] MEDS ORDERED: IBUPROFEN 600MG TAB PO PRN (04:45)
--- NOTE | 2021-03-04 04:53 | DNPDOC ---
[facility] Delivery Note Delivery Note DATE OF DELIVERY: 03/04/2021 TIME OF DELIVERY: 0200 Spontaneous vaginal delivery at 35+5 weeks; home delivery (see H&P and see below) WAD PRINTING MACHINE OPERATOR: Dr. Andrez Singleton DO FACOG LACERATION: Second-degree ESTIMATED BLOOD LOSS: 300 mL. FINDINGS: 6 pound 6 ounce (2880g) male , Score 8 and 10. DELIVERY SUMMARY: Per EMS / FD report, no dystocia encountered during delivery. Loose nuchal cord was noted and easily reduced. The placenta delivered intact without any difficulty within 10 minutes of delivery. The placenta was inspected on her arrival. The uterine fundus was noted to be firm and 2 cm below the umbilicus. The cervix, vagina, vulva and perineum were inspected. A second-degree laceration was noted and immediately repaired with 3-0 Vicryl in typical fashion under local anesthesia. Excellent hemostasis was noted. Sponge, needle and instrument counts were correct per protocol. DO HAZEL Mueller JONATHAN R. DO Mar 04, 2021 04:53
[2021-03-04] MEDS: IBUPROFEN 800 MG TAB PO PRN ×2 (04:57→13:25)
[2021-03-04] MEDS: PRENATAL VITAMINS CHEWABLE TABLET PO SCH (09:59)
[2021-03-05 06:00] VITALS: BP 106/67
[2021-03-05] MEDS: PRENATAL VITAMINS CHEWABLE TABLET PO SCH (07:50)
--- NOTE | 2021-03-05 11:53 | IPNPDOC ---
Progress Note Date of Service: Mar 05, 2021 Progress Note SUBJECT: Status post . She has been ambulating, voiding spontaneously without issue and tolerating regular diet. Lochia decreasing/minimal. Pain is well-controlled. Denies headache, visual changes, right upper quadrant pain, shortness breath or chest pain. OBJECTIVE: VITAL SIGNS: Within normal limits, afebrile. Alert and oriented times three. Abdomen: Fundus firm at U-2. Soft, NTTP. ASSESSMENT: Status post uncomplicated spontaneous vaginal delivery. Vitals within normal limits, afebrile, hemodynamically stable with no evidence of infection. PLAN: Discharge to home today. Tylenol and Motrin for pain. Routine instructions/precautions reviewed. Routine PP visit in 6 weeks in clinic. VS, I&O, 24H, Fishbone Vital Signs/I&O Vital Signs Date Time Temp Pulse Resp B/P (MAP) Pulse Ox O2 Delivery O2 Flow Rate FiO2 03/05/21 06:00 98.8 65 16 106/67 (80) 100 Room Air I&O- Last 24 Hours up to 6 AM 03/05/21 06:00 Output Total 600 ml Balance -600 ml COLTON GRAY DO Mar 05, 2021 11:53
== END 2021-03-05 15:21 | disposition home or self-care (01) | DRG 769 ==
LOC: M LDI 02:45 → M OBS 14:26
PROVIDERS: ADMIT Obstetrics & Gynecology; ATTEND Obstetrics & Gynecology
PROC: 0KQM0ZZ Repair Perineum Muscle, Open Approach (ICD-10-PCS; principal; 2021-03-04)
DX: Z39.0 Encounter for care and examination of mother immediately after delivery (principal); O70.1 Second degree perineal laceration during delivery

== ENCOUNTER → 2021-09-14 | Outpatient (CLI) | payer OTHER | LOC: M WHC 14:01 | PROVIDERS: ATTEND Registered Nurse | DX: N63.14 Unspecified lump in the right breast, lower inner quadrant (principal) ==

== ENCOUNTER → 2021-09-27 | Outpatient (CLI) | payer OTHER ==
[~2021-09-27] MED LIST changes: +SPRI28TA PO
[2021-09-27 09:56] VITALS: BP 108/74
== END ==
LOC: M WHCPRO 08:29
PROVIDERS: ATTEND Surgery
DX: D24.1 Benign neoplasm of right breast (principal)

== ENCOUNTER → 2021-10-26 | Outpatient (CLI) | payer OTHER | LOC: M LABSMTC 10:26 | PROVIDERS: ATTEND Anesthesiology | DX: Z01.818 Encounter for other preprocedural examination (principal); Z11.52 Encounter for screening for COVID-19 ==

== ENCOUNTER → 2021-11-09 | Outpatient (CLI) | payer OTHER | LOC: M LABSMTC 10:33 | PROVIDERS: ATTEND Anesthesiology | DX: Z01.812 Encounter for preprocedural laboratory examination (principal); Z20.822 Contact with and (suspected) exposure to COVID-19 ==

== ENCOUNTER 2021-11-14 06:19 | Day surgery (SDC) | payer OTHER ==
[~2021-11-14] VITALS: Ht 177.8 cm; Wt 81.4 kg
[~2021-11-14 06:19] MED LIST changes: +HEPARIN SOD (PORCINE) 5000UNITS/ML 1ML VIAL/SYRINGE SQ ONE; +LR 1,000 ML IV ONE; +ceFAZolin SOD 2 GM in IV 1 EA IV ONE
[2021-11-14] MEDS ORDERED: fentaNYL 100 MCG/2 ML INJECTION As Ordered ONE ×2 (07:08→09:13)
[2021-11-14] MEDS ORDERED: MIDAZOLAM INJ 2MG/2ML VIAL (J2250 PER 1MG) As Ordered ONE (07:08)
[2021-11-14] MEDS ORDERED: propofoL 200 MG/20 ML VIAL As Ordered ONE (07:08)
[2021-11-14] MEDS ORDERED: ONDANSETRON 4MG/2ML VIAL As Ordered ONE (07:09)
[2021-11-14] MEDS ORDERED: LIDOCAINE 2% 100MG/5ML SDV (FOR ANES.) As Ordered ONE (07:09)
[2021-11-14] MEDS ORDERED: dexameTHASONE 4 MG/ML 1ML VIAL (J1100 PER 1MG) As Ordered ONE (07:09)
[2021-11-14] MEDS ORDERED: SCOPOLAMINE 1MG TRANSDERMAL PATCH TOP ONE (07:30)
[2021-11-14] MEDS ORDERED: BUPIVACAINE HCL 0.25% 30ML VIAL As Ordered ONE (07:41)
[2021-11-14] MEDS ORDERED: LIDOCAINE 1% SDV 30ML VIAL As Ordered ONE (07:41)
[2021-11-14] MEDS ORDERED: ACETAMINOPHEN 1000MG 100ML IV BTL (OFIRMEV) (J0131 PER 10MG) As Ordered ONE (08:24)
[2021-11-14] MEDS ORDERED: ULTR50TA8 PO (09:22)
[2021-11-14] MEDS ORDERED: fentaNYL 100 MCG/2 ML INJECTION IV PRN (09:25)
[2021-11-14] MEDS ORDERED: LR 1,000 ML IV SCH (09:25)
[2021-11-14] MEDS ORDERED: ONDANSETRON 4MG/2ML VIAL IV PRN (09:25)
[2021-11-14] MEDS: oxyCODONE 5MG TAB PO PRN ×2 (09:28→10:05)
[2021-11-14] MEDS ORDERED: METOCLOPRAMIDE INJ 10MG/2ML VIAL (J2765 PER 1) IV PRN (10:05)
[2021-11-14 11:35] VITALS: BP 105/67
== END 2021-11-14 11:46 | disposition home or self-care (01) ==
LOC: M SDC 06:19
PROVIDERS: ATTEND Surgery
DX: D24.1 Benign neoplasm of right breast (principal)
CPT/HCPCS: 19101; 36415; 81025; 86850; 86900; 86901; 88307; J0131; J0690; J1100; J1644; J2250; J2405; J2765; J3010

== ENCOUNTER → 2022-09-13 | Outpatient (REF) | payer OTHER ==
[~2022-09-13] MED LIST changes: -HEPARIN SOD (PORCINE) 5000UNITS/ML 1ML VIAL/SYRINGE SQ ONE; -LR 1,000 ML IV ONE; +ULTR50TA8 PO; -ceFAZolin SOD 2 GM in IV 1 EA IV ONE
== END ==
LOC: M LAB REF 18:33
PROVIDERS: ATTEND Student in an Organized Health Care Education/Training Program
DX: J02.9 Acute pharyngitis, unspecified (principal)

== ENCOUNTER → 2023-01-28 | Outpatient (CLI) | payer OTHER | LOC: M WUC 08:05 | PROVIDERS: ATTEND Student in an Organized Health Care Education/Training Program | DX: M79.674 Pain in right toe(s) (principal); S92.524A Nondisplaced fracture of middle phalanx of right lesser toe(s), initial encounter for closed fracture; X58.XXXA Exposure to other specified factors, initial encounter; Y92.9 Unspecified place or not applicable ==

== ENCOUNTER → 2023-02-25 | Outpatient (CLI) | payer OTHER | LOC: M WUC 08:07 | PROVIDERS: ATTEND Physician Assistant | DX: N20.0 Calculus of kidney (principal); K59.00 Constipation, unspecified ==

== ENCOUNTER → 2023-04-04 | Outpatient (CLI) | payer OTHER | LOC: M WUC 15:29 | PROVIDERS: ATTEND Physician Assistant | DX: N20.0 Calculus of kidney (principal) ==

== ENCOUNTER → 2023-05-13 | Outpatient (CLI) | payer OTHER | LOC: M RAD 15:19 | PROVIDERS: ATTEND Physician Assistant | DX: N20.0 Calculus of kidney (principal) ==

== ENCOUNTER → 2024-01-08 | Outpatient (CLI) | payer OTHER | LOC: M RAD 13:33 | PROVIDERS: ATTEND Physician Assistant | DX: N20.0 Calculus of kidney (principal) ==

== ENCOUNTER → 2024-09-07 | Outpatient (CLI) | payer OTHER | LOC: M WUC 13:30 | PROVIDERS: ATTEND Physician Assistant | DX: N20.0 Calculus of kidney (principal) ==